=== PATIENT | male | born 1990 | race Caucasian/White ===

== ENCOUNTER 2019-02-27 19:57 | Inpatient (IN) | payer OTHER ==
[2019-02-27] MEDS ORDERED: ONDANSETRON 4 MG INJ IV (21:30)
[2019-02-27] MEDS ORDERED: NACL 0.9% 3 ML SYG IV (21:30)
[2019-02-27] MEDS ORDERED: INSULIN ASPART [NOVOLOG] 3 ML PEN SC (21:30)
[2019-02-27] MEDS ORDERED: ACCU-CHEK XX (21:30)
[2019-02-27] MEDS ORDERED: ACETAMINOPHEN 325 MG TAB PO (21:30)
[2019-02-27] MEDS: SOD CHLORIDE 0.9% 1,000 ML IV (21:43)
[2019-02-27] MEDS ORDERED: GLUCOSE GEL 15 GRAM TUBE PO ×2 (22:00)
[2019-02-27] MEDS ORDERED: GLUCOSE GEL 15 GRAM TUBE BUCCAL (22:00)
[2019-02-27] MEDS ORDERED: GLUCAGON 1 MG INJ IM (22:00)
[2019-02-27] MEDS ORDERED: DEXTROSE 50% 50 ML SYRINGE IV ×2 (22:00)
[2019-02-27] MEDS: INSULIN GLARGINE [LANTus] (100 UNITS/ML) SYG SC (22:14)
[2019-02-27] MEDS: INSULIN ASPART [NOVOLOG] 3 ML PEN SC (22:14)
[2019-02-28] MEDS: ACCU-CHEK XX ×4 (00:28→14:25)
[2019-02-28] MEDS: INSULIN ASPART [NOVOLOG] 3 ML PEN SC ×9 (01:25→20:20)
[2019-02-28 06:02] LABS: ADD MAN DIFF? NO
[2019-02-28 06:06] LABS: BASOPHIL # 0.1 10^3/ul (0.0-0.1); BASOPHILS % 0.3 % (0.0-2.0); EOSINOPHILS # 0.1 10^3/ul (0.0-0.5); EOSINOPHILS % 0.6 % (0.0-7.0); HEMATOCRIT 39.6 % (42.0-52.0); HEMOGLOBIN 13.9 g/dl (14.0-18.0); LYMPHOCYTES # 3.3 10^3/ul (0.8-2.9); LYMPHOCYTES % 15.9 % (15.0-51.0); MEAN CORPUSCULAR HEMOGLOBIN 27.5 pg (29.0-33.0); MEAN CORPUSCULAR HGB CONC 35.1 g/dl (32.0-37.0); MEAN CORPUSCULAR VOLUME 78.4 fl (82.0-101.0); MEAN PLATELET VOLUME 9.8 fl (7.4-10.4); MONOCYTE # 1.2 10^3/ul (0.3-0.9); MONOCYTES % 6.1 % (0.0-11.0); NEUTROPHIL # 15.7 10^3/ul (1.6-7.5); NEUTROPHILS % 76.5 % (39.0-77.0); PLATELET COUNT 426 10^3/UL (140-415); RED BLOOD COUNT 5.05 10^6/ul (4.70-6.10); RED CELL DISTRIBUTION WIDTH 11.8 % (11.5-14.5)
[2019-02-28 06:06] LABS: WHITE BLOOD COUNT 20.5 10^3/ul (4.8-10.8)
[2019-02-28] MEDS: SOD CHLORIDE 0.9% 1,000 ML IV ×3 (06:15→22:25)
[2019-02-28 06:41] LABS: ALBUMIN 2.9 g/dl (3.3-4.9)
[2019-02-28 06:43] LABS: ALANINE AMINOTRANSFERASE 82 IU/L (13-69); ALBUMIN/GLOBULIN RATIO 0.78; ALKALINE PHOSPHATASE 1008 IU/L (42-121); ANION GAP 7 (5-13); ASPARTATE AMINO TRANSFERASE 84 IU/L (15-46); BILIRUBIN,INDIRECT 0.2 mg/dl (0-1.1); BILIRUBIN,TOTAL 0.2 mg/dl (0.2-1.3); BLOOD UREA NITROGEN 16 mg/dl (7-20); CALCIUM 8.5 mg/dl (8.4-10.2); CARBON DIOXIDE 34 mmol/L (21-31); CHLORIDE 96 mmol/L (97-110); CREATININE 0.53 mg/dl (0.61-1.24); Estimated GFR > 60 mL/min (>60); GLUCOSE 176 mg/dl (70-220); SODIUM 137 mmol/L (135-144); TOTAL PROTEIN 6.6 g/dl (6.1-8.1)
[2019-02-28 06:45] LABS: MAGNESIUM 0.9 mg/dl (1.7-2.5)
[2019-02-28] MEDS: POTASSIUM CHLORIDE 100 ML IVPB ×2 (07:47→10:20)
[2019-02-28] MEDS: MAGNESIUM SULFATE 4 GM/100 ML 100 ML IVPB ×2 (09:04→12:09)
[2019-02-28] MEDS: LEVOFLOXACIN 500MG/D5W (PMX) 100 ML IVPB (10:46)
[2019-02-28] MEDS: POTASSIUM CHLORIDE (SR) 20 MEQ TAB PO (12:45)
[2019-02-28] MEDS ORDERED: VANCOMYCIN IV PER PHARMACY XX (13:00)
[2019-02-28] MEDS: PIPER-TAZO 3.375 GM IV (PMX) 100 ML IVPB ×2 (13:43→16:50)
[2019-02-28] MEDS: VANCOMYCIN 1 GM 250 ML IVPB (13:53)
[2019-02-28] MEDS: INSULIN GLARGINE [LANTus] (100 UNITS/ML) SYG SC (20:23)
[2019-02-28 20:54] LABS: LACTIC ACID 2.9 mmol/L (0.5-2.0)
[2019-02-28] MEDS ORDERED: INSULIN GLARGINE [LANTus] (100 UNITS/ML) SYG SC (21:00)
[2019-03-01] MEDS: PIPER-TAZO 3.375 GM IV (PMX) 100 ML IVPB ×5 (00:22→23:45)
[2019-03-01 00:36] LABS: LACTIC ACID 1.7 mmol/L (0.5-2.0)
[2019-03-01] MEDS: ACCU-CHEK XX (02:00)
[2019-03-01] MEDS: VANCOMYCIN 750 MG (PMX) 250 ML IVPB ×2 (02:19→13:58)
[2019-03-01] MEDS: SOD CHLORIDE 0.9% 1,000 ML IV ×3 (05:18→21:18)
[2019-03-01 07:26] LABS: ADD MAN DIFF? NO
[2019-03-01 07:30] LABS: WHITE BLOOD COUNT 18.7 10^3/ul (4.8-10.8)
[2019-03-01 07:30] LABS: BASOPHIL # 0.1 10^3/ul (0.0-0.1); BASOPHILS % 0.4 % (0.0-2.0); EOSINOPHILS # 0.1 10^3/ul (0.0-0.5); EOSINOPHILS % 0.4 % (0.0-7.0); HEMATOCRIT 40.2 % (42.0-52.0); HEMOGLOBIN 13.6 g/dl (14.0-18.0); LYMPHOCYTES # 3.3 10^3/ul (0.8-2.9); LYMPHOCYTES % 17.7 % (15.0-51.0); MEAN CORPUSCULAR HGB CONC 33.8 g/dl (32.0-37.0); MEAN CORPUSCULAR VOLUME 79.8 fl (82.0-101.0); MEAN PLATELET VOLUME 9.7 fl (7.4-10.4); MONOCYTE # 1.3 10^3/ul (0.3-0.9); MONOCYTES % 6.8 % (0.0-11.0); NEUTROPHIL # 13.9 10^3/ul (1.6-7.5); NEUTROPHILS % 74.2 % (39.0-77.0); PLATELET COUNT 427 10^3/UL (140-415); RED BLOOD COUNT 5.04 10^6/ul (4.70-6.10); RED CELL DISTRIBUTION WIDTH 11.8 % (11.5-14.5)
[2019-03-01 07:58] LABS: ALANINE AMINOTRANSFERASE 72 IU/L (13-69); ALBUMIN 2.9 g/dl (3.3-4.9); ALBUMIN/GLOBULIN RATIO 0.82; ALKALINE PHOSPHATASE 961 IU/L (42-121); ANION GAP 7 (5-13); ASPARTATE AMINO TRANSFERASE 75 IU/L (15-46); BILIRUBIN,INDIRECT 0.4 mg/dl (0-1.1); BILIRUBIN,TOTAL 0.4 mg/dl (0.2-1.3); BLOOD UREA NITROGEN 12 mg/dl (7-20); CARBON DIOXIDE 32 mmol/L (21-31); CHLORIDE 97 mmol/L (97-110); CREATININE 0.61 mg/dl (0.61-1.24); Estimated GFR > 60 mL/min (>60); GLUCOSE 187 mg/dl (70-220); MAGNESIUM 1.2 mg/dl (1.7-2.5); PHOSPHORUS 2.6 mg/dl (2.5-4.9); SODIUM 136 mmol/L (135-144); TOTAL PROTEIN 6.4 g/dl (6.1-8.1)
[2019-03-01] MEDS: INSULIN ASPART [NOVOLOG] 3 ML PEN SC ×7 (08:02→21:07)
[2019-03-01] MEDS: POTASSIUM CHLORIDE (SR) 20 MEQ TAB PO ×2 (08:58→10:37)
[2019-03-01] MEDS: POTASSIUM CHLORIDE 100 ML IVPB (08:59)
[2019-03-01] MEDS: INSULIN GLARGINE [LANTus] (100 UNITS/ML) SYG SC ×2 (09:07→21:07)
[2019-03-01] MEDS: MAGNESIUM SULFATE 6 GM in DEXTROSE 5% 100 ML IVPB (09:26)
[2019-03-01 14:52] LABS: HAAIG REFLEX REFLEX FILED
[2019-03-01 15:31] LABS: HEPATITIS B SURFACE ANTIGEN NEGATIVE (NEGATIVE)
[2019-03-01 15:49] LABS: HEPATITIS B CORE ANTIBODY NEGATIVE (NEGATIVE); HEPATITIS C VIRAL ANTIBODY NEGATIVE (NEGATIVE)
[2019-03-02] MEDS: ACCU-CHEK XX (02:00)
[2019-03-02 02:03] LABS: VANCOMYCIN,TROUGH 5.2 ug/ml (10.0-20.0)
[2019-03-02] MEDS: VANCOMYCIN 750 MG (PMX) 250 ML IVPB ×3 (02:32→19:28)
[2019-03-02] MEDS: SOD CHLORIDE 0.9% 1,000 ML IV ×3 (05:23→20:29)
[2019-03-02] MEDS: PIPER-TAZO 3.375 GM IV (PMX) 100 ML IVPB ×4 (05:44→23:25)
[2019-03-02 06:41] LABS: ADD MAN DIFF? NO
[2019-03-02 06:51] LABS: BASOPHIL # 0.1 10^3/ul (0.0-0.1); BASOPHILS % 0.4 % (0.0-2.0); EOSINOPHILS # 0.1 10^3/ul (0.0-0.5); EOSINOPHILS % 0.6 % (0.0-7.0); HEMOGLOBIN 13.9 g/dl (14.0-18.0); LYMPHOCYTES # 2.6 10^3/ul (0.8-2.9); LYMPHOCYTES % 19.2 % (15.0-51.0); MEAN CORPUSCULAR HEMOGLOBIN 27.5 pg (29.0-33.0); MEAN CORPUSCULAR HGB CONC 33.9 g/dl (32.0-37.0); MEAN PLATELET VOLUME 9.7 fl (7.4-10.4); MONOCYTE # 1.1 10^3/ul (0.3-0.9); MONOCYTES % 7.8 % (0.0-11.0); NEUTROPHIL # 9.9 10^3/ul (1.6-7.5); NEUTROPHILS % 71.5 % (39.0-77.0); PLATELET COUNT 429 10^3/UL (140-415); RED BLOOD COUNT 5.06 10^6/ul (4.70-6.10); RED CELL DISTRIBUTION WIDTH 11.9 % (11.5-14.5)
[2019-03-02 06:51] LABS: WHITE BLOOD COUNT 13.8 10^3/ul (4.8-10.8)
[2019-03-02 07:05] LABS: ALANINE AMINOTRANSFERASE 80 IU/L (13-69); ALBUMIN 2.9 g/dl (3.3-4.9); ALKALINE PHOSPHATASE 1192 IU/L (42-121); ANION GAP 7 (5-13); ASPARTATE AMINO TRANSFERASE 88 IU/L (15-46); BILIRUBIN,INDIRECT 0.1 mg/dl (0-1.1); BILIRUBIN,TOTAL 0.1 mg/dl (0.2-1.3); BLOOD UREA NITROGEN 18 mg/dl (7-20); CALCIUM 8.2 mg/dl (8.4-10.2); CARBON DIOXIDE 32 mmol/L (21-31); CHLORIDE 96 mmol/L (97-110); CREATININE 0.63 mg/dl (0.61-1.24); Estimated GFR > 60 mL/min (>60); GLUCOSE 194 mg/dl (70-220); PHOSPHORUS 3.3 mg/dl (2.5-4.9); POTASSIUM 3.1 mmol/L (3.5-5.1); SODIUM 135 mmol/L (135-144); TOTAL PROTEIN 6.5 g/dl (6.1-8.1)
[2019-03-02 07:12] LABS: GAMMA GLUTAMYL TRANSPEPTIDASE 1135 IU/L (0-50)
[2019-03-02] MEDS: IOHEXOL 300MG/ML 150 ML BTL (08:47)
[2019-03-02] MEDS: SOD CHLORIDE 0.9% 100 ML (08:47)
[2019-03-02] MEDS: POTASSIUM CHLORIDE (SR) 20 MEQ TAB PO (09:03)
[2019-03-02] MEDS: INSULIN ASPART [NOVOLOG] 3 ML PEN SC ×7 (09:23→20:43)
[2019-03-02] MEDS: INSULIN GLARGINE [LANTus] (100 UNITS/ML) SYG SC ×2 (09:23→20:42)
[2019-03-02] MEDS: MAGNESIUM SULFATE 4 GM/100 ML 100 ML IVPB ×2 (10:28→15:37)
[2019-03-02 14:16] LABS: ADD UMIC NO; UR ASCORBIC ACID NEGATIVE (NEGATIVE); UR BILIRUBIN (Dip) NEGATIVE (NEGATIVE); UR BLOOD (Dip) NEGATIVE (NEGATIVE); UR CLARITY CLEAR (CLEAR); UR COLOR STRAW (YELLOW); UR GLUCOSE (Dip) 3+ mg/dL (NEGATIVE); UR KETONES (Dip) NEGATIVE (NEGATIVE); UR LEUKOCYTE ESTERASE (Dip) NEGATIVE Leu/ul (NEGATIVE); UR NITRITE (Dip) NEGATIVE (NEGATIVE); UR SPECIFIC GRAVITY (Dip) 1.014 (1.003-1.030); UR TOTAL PROTEIN (Dip) NEGATIVE (NEGATIVE); UR UROBILINOGEN (Dip) NEGATIVE (NEGATIVE)
[2019-03-02 15:49] LABS: HIV 1&2 ANTIBODY NEGATIVE (NEGATIVE)
[2019-03-02 16:27] LABS: HEMATOCRIT 37.2 % (42.0-52.0); HEMOGLOBIN 12.5 g/dl (14.0-18.0)
[2019-03-02] MEDS: HEPARIN 5,000 UNIT/1 ML VIAL SC (20:43)
[2019-03-02 22:14] LABS: SITE Left Upper Forearm; TIME 2205
[2019-03-03] MEDS: VANCOMYCIN 750 MG (PMX) 250 ML IVPB ×2 (00:16→11:11)
[2019-03-03] MEDS: ACCU-CHEK XX (01:03)
[2019-03-03] MEDS: SOD CHLORIDE 0.9% 1,000 ML IV ×3 (05:51→22:10)
[2019-03-03] MEDS: PIPER-TAZO 3.375 GM IV (PMX) 100 ML IVPB ×2 (05:51→12:31)
[2019-03-03] MEDS: HEPARIN 5,000 UNIT/1 ML VIAL SC ×2 (08:28→22:04)
[2019-03-03] MEDS: INSULIN ASPART [NOVOLOG] 3 ML PEN SC ×7 (08:31→22:10)
[2019-03-03] MEDS: INSULIN GLARGINE [LANTus] (100 UNITS/ML) SYG SC ×2 (08:45→17:17)
[2019-03-03 09:18] LABS: ADD MAN DIFF? NO
[2019-03-03 09:20] LABS: WHITE BLOOD COUNT 12.5 10^3/ul (4.8-10.8)
[2019-03-03 09:20] LABS: BASOPHIL # 0.1 10^3/ul (0.0-0.1); BASOPHILS % 0.6 % (0.0-2.0); EOSINOPHILS # 0.1 10^3/ul (0.0-0.5); EOSINOPHILS % 0.4 % (0.0-7.0); HEMATOCRIT 39.8 % (42.0-52.0); HEMOGLOBIN 13.3 g/dl (14.0-18.0); LYMPHOCYTES # 2.3 10^3/ul (0.8-2.9); LYMPHOCYTES % 18.4 % (15.0-51.0); MEAN CORPUSCULAR HEMOGLOBIN 26.8 pg (29.0-33.0); MEAN CORPUSCULAR HGB CONC 33.4 g/dl (32.0-37.0); MEAN CORPUSCULAR VOLUME 80.2 fl (82.0-101.0); MEAN PLATELET VOLUME 9.3 fl (7.4-10.4); MONOCYTE # 1.2 10^3/ul (0.3-0.9); MONOCYTES % 9.2 % (0.0-11.0); NEUTROPHIL # 8.9 10^3/ul (1.6-7.5); PLATELET COUNT 388 10^3/UL (140-415); RED BLOOD COUNT 4.96 10^6/ul (4.70-6.10)
[2019-03-03 09:42] LABS: ALANINE AMINOTRANSFERASE 74 IU/L (13-69); ALBUMIN/GLOBULIN RATIO 0.81; ALKALINE PHOSPHATASE 1316 IU/L (42-121); ANION GAP 10 (5-13); ASPARTATE AMINO TRANSFERASE 87 IU/L (15-46); BILIRUBIN,INDIRECT 0.1 mg/dl (0-1.1); BILIRUBIN,TOTAL 0.1 mg/dl (0.2-1.3); BLOOD UREA NITROGEN 20 mg/dl (7-20); CALCIUM 8.6 mg/dl (8.4-10.2); CARBON DIOXIDE 30 mmol/L (21-31); CHLORIDE 93 mmol/L (97-110); Estimated GFR > 60 mL/min (>60); GLUCOSE 337 mg/dl (70-220); POTASSIUM 3.9 mmol/L (3.5-5.1); SODIUM 133 mmol/L (135-144); TOTAL PROTEIN 6.7 g/dl (6.1-8.1)
[2019-03-03 09:46] LABS: VANCOMYCIN,TROUGH 11.7 ug/ml (10.0-20.0)
[2019-03-03 11:23] LABS: MITOCHONDRIAL TB NEGATIVE (NEGATIVE)
[2019-03-03] MEDS: CEFEPIME 1GM/50 ML (PMX) 50 ML IVPB (22:00)
[2019-03-04] MEDS: ACCU-CHEK XX (02:00)
[2019-03-04 05:40] LABS: ADD MAN DIFF? NO
[2019-03-04 05:47] LABS: WHITE BLOOD COUNT 10.6 10^3/ul (4.8-10.8)
[2019-03-04 05:47] LABS: BASOPHIL # 0.1 10^3/ul (0.0-0.1); BASOPHILS % 0.8 % (0.0-2.0); EOSINOPHILS # 0.1 10^3/ul (0.0-0.5); EOSINOPHILS % 0.9 % (0.0-7.0); HEMATOCRIT 40.3 % (42.0-52.0); HEMOGLOBIN 13.6 g/dl (14.0-18.0); LYMPHOCYTES # 3.3 10^3/ul (0.8-2.9); LYMPHOCYTES % 31.2 % (15.0-51.0); MEAN CORPUSCULAR HEMOGLOBIN 27.4 pg (29.0-33.0); MEAN CORPUSCULAR HGB CONC 33.7 g/dl (32.0-37.0); MEAN CORPUSCULAR VOLUME 81.1 fl (82.0-101.0); MEAN PLATELET VOLUME 9.7 fl (7.4-10.4); MONOCYTE # 1.1 10^3/ul (0.3-0.9); MONOCYTES % 10.7 % (0.0-11.0); NEUTROPHIL # 5.9 10^3/ul (1.6-7.5); NEUTROPHILS % 55.6 % (39.0-77.0); PLATELET COUNT 402 10^3/UL (140-415); RED BLOOD COUNT 4.97 10^6/ul (4.70-6.10); RED CELL DISTRIBUTION WIDTH 11.9 % (11.5-14.5)
[2019-03-04 06:11] LABS: ALANINE AMINOTRANSFERASE 93 IU/L (13-69); ALBUMIN 3.1 g/dl (3.3-4.9); ALBUMIN/GLOBULIN RATIO 0.86; ALKALINE PHOSPHATASE 1314 IU/L (42-121); ANION GAP 8 (5-13); ASPARTATE AMINO TRANSFERASE 72 IU/L (15-46); BLOOD UREA NITROGEN 23 mg/dl (7-20); CALCIUM 9.2 mg/dl (8.4-10.2); CARBON DIOXIDE 29 mmol/L (21-31); CHLORIDE 98 mmol/L (97-110); CREATININE 0.71 mg/dl (0.61-1.24); Estimated GFR > 60 mL/min (>60); GLUCOSE 311 mg/dl (70-220); POTASSIUM 3.7 mmol/L (3.5-5.1); SODIUM 135 mmol/L (135-144); TOTAL PROTEIN 6.7 g/dl (6.1-8.1)
[2019-03-04] MEDS: LEVOFLOXACIN 500 MG TAB PO (06:19)
[2019-03-04] MEDS ORDERED: MAGNESIUM SULFATE 1 GM/D5W 100 ML IVPB (06:43)
[2019-03-04] MEDS: CEFEPIME 1GM/50 ML (PMX) 50 ML IVPB ×2 (07:58→20:18)
[2019-03-04] MEDS: SOD CHLORIDE 0.9% 1,000 ML IV ×2 (07:59→13:18)
[2019-03-04] MEDS: MAGNESIUM SULFATE 6 GM in DEXTROSE 5% 100 ML IVPB (08:56)
[2019-03-04] MEDS: HEPARIN 5,000 UNIT/1 ML VIAL SC ×2 (08:59→20:16)
[2019-03-04] MEDS: INSULIN ASPART [NOVOLOG] 3 ML PEN SC ×7 (09:04→20:14)
[2019-03-04 18:26] LABS: ALKALINE PHOSPHATASE 953 U/L (40-115); BONE ISOENZYMES 23 % (28-66); INTESTINAL ISOENZYMES 0 % (1-24); LIVER ISOENZYMES 77 % (25-69); PLACENTAL ISOENZYMES 0 % (0)
[2019-03-04 18:33] LABS: LACTATE DEHYDROGENASE 773 IU/L (313-618)
[2019-03-04] MEDS: LINAGLIPTIN 5 MG TABLET PO (18:57)
[2019-03-04] MEDS ORDERED: INSULIN GLARGINE [LANTus] (100 UNITS/ML) SYG SC (21:00)
[2019-03-04] MEDS: INSULIN GLARGINE [LANTus] (100 UNITS/ML) SYG SC (21:16)
[2019-03-05] MEDS: SOD CHLORIDE 0.9% 1,000 ML IV ×2 (00:50→05:18)
[2019-03-05] MEDS: ACCU-CHEK XX ×2 (01:06→03:17)
[2019-03-05] MEDS: INSULIN ASPART [NOVOLOG] 3 ML PEN SC ×5 (02:38→21:32)
[2019-03-05 05:19] LABS: ADD MAN DIFF? NO
[2019-03-05 05:24] LABS: WHITE BLOOD COUNT 10.7 10^3/ul (4.8-10.8)
[2019-03-05 05:24] LABS: BASOPHIL # 0.1 10^3/ul (0.0-0.1); BASOPHILS % 0.7 % (0.0-2.0); EOSINOPHILS # 0.1 10^3/ul (0.0-0.5); EOSINOPHILS % 0.7 % (0.0-7.0); HEMATOCRIT 39.7 % (42.0-52.0); HEMOGLOBIN 13.4 g/dl (14.0-18.0); LYMPHOCYTES # 3.3 10^3/ul (0.8-2.9); LYMPHOCYTES % 30.6 % (15.0-51.0); MEAN CORPUSCULAR HEMOGLOBIN 27.1 pg (29.0-33.0); MEAN CORPUSCULAR HGB CONC 33.8 g/dl (32.0-37.0); MEAN CORPUSCULAR VOLUME 80.4 fl (82.0-101.0); MEAN PLATELET VOLUME 9.5 fl (7.4-10.4); MONOCYTE # 1.2 10^3/ul (0.3-0.9); MONOCYTES % 11.4 % (0.0-11.0); PLATELET COUNT 448 10^3/UL (140-415); RED BLOOD COUNT 4.94 10^6/ul (4.70-6.10); RED CELL DISTRIBUTION WIDTH 11.9 % (11.5-14.5)
[2019-03-05] MEDS: LEVOFLOXACIN 500 MG TAB PO (05:47)
[2019-03-05 05:59] LABS: ANION GAP 7 (5-13); BLOOD UREA NITROGEN 25 mg/dl (7-20); CALCIUM 8.9 mg/dl (8.4-10.2); CARBON DIOXIDE 34 mmol/L (21-31); CHLORIDE 96 mmol/L (97-110); CREATININE 0.91 mg/dl (0.61-1.24); Estimated GFR > 60 mL/min (>60); GLUCOSE 166 mg/dl (70-220); MAGNESIUM 1.4 mg/dl (1.7-2.5); PHOSPHORUS 3.8 mg/dl (2.5-4.9); POTASSIUM 3.5 mmol/L (3.5-5.1); SODIUM 137 mmol/L (135-144)
[2019-03-05] MEDS: LINAGLIPTIN 5 MG TABLET PO (08:29)
[2019-03-05] MEDS: metFORMIN 500 MG TAB PO ×2 (08:29→17:35)
[2019-03-05] MEDS: CEFEPIME 1GM/50 ML (PMX) 50 ML IVPB ×2 (08:32→20:23)
[2019-03-05] MEDS: INSULIN GLARGINE [LANTus] (100 UNITS/ML) SYG SC ×2 (08:32→09:00)
[2019-03-05] MEDS: HEPARIN 5,000 UNIT/1 ML VIAL SC ×2 (08:32→20:26)
[2019-03-05] MEDS: DEXTROSE 5%-0.45% NACL 1,000 ML IV ×2 (10:00→18:20)
[2019-03-05] MEDS: MAGNESIUM OXIDE 400 MG TAB PO (10:09)
[2019-03-05] MEDS: POTASSIUM CHLORIDE (SR) 10 MEQ TAB PO (10:09)
[2019-03-05] MEDS ORDERED: INSULIN ASPART [NOVOLOG] 3 ML PEN SC ×2 (11:40→13:00)
[2019-03-05] MEDS ORDERED: Insulin NOVOLOG SS MODERATE Algorithm(NPO/TPN/ENTERAL FEEDS) SC (13:00)
[2019-03-06] MEDS: INSULIN ASPART [NOVOLOG] 3 ML PEN SC (01:42)
[2019-03-06] MEDS: ACCU-CHEK XX ×17 (02:00→23:00)
[2019-03-06] MEDS: DEXTROSE 5%-0.45% NACL 1,000 ML IV ×3 (02:12→19:01)
[2019-03-06 05:37] LABS: ADD MAN DIFF? NO
[2019-03-06 05:41] LABS: WHITE BLOOD COUNT 13.1 10^3/ul (4.8-10.8)
[2019-03-06 05:41] LABS: ABNORMAL IP MESSAGE 1; BASOPHIL # 0.1 10^3/ul (0.0-0.1); BASOPHILS % 0.8 % (0.0-2.0); EOSINOPHILS # 0.1 10^3/ul (0.0-0.5); EOSINOPHILS % 0.8 % (0.0-7.0); HEMATOCRIT 39.4 % (42.0-52.0); HEMOGLOBIN 13.3 g/dl (14.0-18.0); LYMPHOCYTES # 4.2 10^3/ul (0.8-2.9); LYMPHOCYTES % 32.2 % (15.0-51.0); MEAN CORPUSCULAR HEMOGLOBIN 27.1 pg (29.0-33.0); MEAN CORPUSCULAR HGB CONC 33.8 g/dl (32.0-37.0); MEAN CORPUSCULAR VOLUME 80.4 fl (82.0-101.0); MEAN PLATELET VOLUME 9.4 fl (7.4-10.4); MONOCYTE # 1.6 10^3/ul (0.3-0.9); MONOCYTES % 12.2 % (0.0-11.0); NEUTROPHILS % 53.2 % (39.0-77.0); PLATELET COUNT 434 10^3/UL (140-415); POSITIVE DIFF @See below; RED CELL DISTRIBUTION WIDTH 12.1 % (11.5-14.5)
[2019-03-06 06:27] LABS: ANION GAP 7 (5-13); BLOOD UREA NITROGEN 29 mg/dl (7-20); CALCIUM 9.6 mg/dl (8.4-10.2); CARBON DIOXIDE 32 mmol/L (21-31); CHLORIDE 96 mmol/L (97-110); CREATININE 0.85 mg/dl (0.61-1.24); Estimated GFR > 60 mL/min (>60); GLUCOSE 153 mg/dl (70-220); PHOSPHORUS 4.9 mg/dl (2.5-4.9); POTASSIUM 4.4 mmol/L (3.5-5.1); SODIUM 135 mmol/L (135-144)
[2019-03-06] MEDS: LEVOFLOXACIN 500 MG TAB PO (06:28)
[2019-03-06 06:45] LABS: ALANINE AMINOTRANSFERASE 176 IU/L (13-69); ALBUMIN 3.3 g/dl (3.3-4.9); ALKALINE PHOSPHATASE 1287 IU/L (42-121); ASPARTATE AMINO TRANSFERASE 142 IU/L (15-46); BILIRUBIN,INDIRECT 0.1 mg/dl (0-1.1); BILIRUBIN,TOTAL 0.1 mg/dl (0.2-1.3); TOTAL PROTEIN 6.7 g/dl (6.1-8.1)
[2019-03-06 06:52] LABS: MAGNESIUM 0.9 mg/dl (1.7-2.5)
[2019-03-06] MEDS ORDERED: DEXTROSE 50% 50 ML SYRINGE IV ×4 (09:00→10:00)
[2019-03-06] MEDS ORDERED: INSULIN GLARGINE [LANTus] (100 UNITS/ML) SYG SC (09:00)
[2019-03-06] MEDS ORDERED: GLUCAGON 1 MG INJ IM (10:00)
[2019-03-06] MEDS ORDERED: GLUCOSE GEL 15 GRAM TUBE BUCCAL (10:00)
[2019-03-06] MEDS ORDERED: GLUCOSE GEL 15 GRAM TUBE PO ×2 (10:00)
[2019-03-06] MEDS: CEFEPIME 1GM/50 ML (PMX) 50 ML IVPB ×2 (10:17→21:57)
[2019-03-06] MEDS: MAGNESIUM SULFATE 6 GM in DEXTROSE 5% 100 ML IVPB (10:17)
[2019-03-06] MEDS: HEPARIN 5,000 UNIT/1 ML VIAL SC ×2 (10:21→21:59)
[2019-03-06] MEDS: INSULIN HUMAN REGULAR 100 UNIT in SOD CHLORIDE 0.9% 99 ML IV (11:38)
[2019-03-06] MEDS: INSULIN GLARGINE [LANTus] (100 UNITS/ML) SYG SC (20:12)
[2019-03-06] MEDS: metFORMIN (XR) 500 MG TAB PO (21:57)
[2019-03-07] MEDS: ACCU-CHEK XX ×20 (01:00→18:30)
[2019-03-07] MEDS: DEXTROSE 5%-0.45% NACL 1,000 ML IV ×2 (03:04→12:00)
[2019-03-07] MEDS: INSULIN HUMAN REGULAR 100 UNIT in SOD CHLORIDE 0.9% 99 ML IV (04:39)
[2019-03-07] MEDS: LEVOFLOXACIN 500 MG TAB PO ×2 (05:00→06:00)
[2019-03-07 05:05] LABS: ADD MAN DIFF? NO
[2019-03-07 05:13] LABS: WHITE BLOOD COUNT 12.9 10^3/ul (4.8-10.8)
[2019-03-07 05:13] LABS: BASOPHIL # 0.1 10^3/ul (0.0-0.1); BASOPHILS % 0.6 % (0.0-2.0); EOSINOPHILS # 0.1 10^3/ul (0.0-0.5); EOSINOPHILS % 0.9 % (0.0-7.0); HEMATOCRIT 39.8 % (42.0-52.0); HEMOGLOBIN 13.4 g/dl (14.0-18.0); LYMPHOCYTES # 3.2 10^3/ul (0.8-2.9); LYMPHOCYTES % 25.2 % (15.0-51.0); MEAN CORPUSCULAR HEMOGLOBIN 27.1 pg (29.0-33.0); MEAN CORPUSCULAR HGB CONC 33.7 g/dl (32.0-37.0); MEAN CORPUSCULAR VOLUME 80.4 fl (82.0-101.0); MEAN PLATELET VOLUME 9.3 fl (7.4-10.4); MONOCYTE # 1.1 10^3/ul (0.3-0.9); MONOCYTES % 8.7 % (0.0-11.0); NEUTROPHIL # 8.2 10^3/ul (1.6-7.5); NEUTROPHILS % 63.9 % (39.0-77.0); PLATELET COUNT 424 10^3/UL (140-415); RED BLOOD COUNT 4.95 10^6/ul (4.70-6.10); RED CELL DISTRIBUTION WIDTH 12.1 % (11.5-14.5)
[2019-03-07 05:49] LABS: ALANINE AMINOTRANSFERASE 131 IU/L (13-69); ALBUMIN 3.5 g/dl (3.3-4.9); ALBUMIN/GLOBULIN RATIO 0.92; ALKALINE PHOSPHATASE 1334 IU/L (42-121); ANION GAP 7 (5-13); ASPARTATE AMINO TRANSFERASE 68 IU/L (15-46); BILIRUBIN,INDIRECT 0.1 mg/dl (0-1.1); BILIRUBIN,TOTAL 0.1 mg/dl (0.2-1.3); BLOOD UREA NITROGEN 33 mg/dl (7-20); CARBON DIOXIDE 32 mmol/L (21-31); CHLORIDE 96 mmol/L (97-110); CREATININE 0.86 mg/dl (0.61-1.24); Estimated GFR > 60 mL/min (>60); GLUCOSE 268 mg/dl (70-220); MAGNESIUM 1.3 mg/dl (1.7-2.5); POTASSIUM 4.2 mmol/L (3.5-5.1); SODIUM 135 mmol/L (135-144); TOTAL PROTEIN 7.3 g/dl (6.1-8.1)
[2019-03-07] MEDS: INSULIN ASPART [NOVOLOG] 3 ML PEN SC ×4 (10:10→20:17)
[2019-03-07] MEDS: MAGNESIUM OXIDE 400 MG TAB PO (10:25)
[2019-03-07] MEDS: MAGNESIUM SULFATE 3 GM in DEXTROSE 5% 100 ML IVPB (10:27)
[2019-03-07] MEDS: CEFEPIME 1GM/50 ML (PMX) 50 ML IVPB ×2 (10:28→20:21)
[2019-03-07] MEDS: HEPARIN 5,000 UNIT/1 ML VIAL SC ×2 (10:39→20:23)
[2019-03-07] MEDS: metFORMIN (XR) 500 MG TAB PO ×2 (10:48→20:22)
[2019-03-07] MEDS: INSULIN GLARGINE [LANTus] (100 UNITS/ML) SYG SC (20:23)
[2019-03-07] MEDS: IODIXANOL LOCM 100 ML BTL (23:52)
[2019-03-07] MEDS: SOD CHLORIDE 0.9% 100 ML (23:52)
[2019-03-08] MEDS: ACCU-CHEK XX (02:02)
[2019-03-08 05:22] LABS: ADD MAN DIFF? NO
[2019-03-08 05:33] LABS: ABNORMAL IP MESSAGE 1; BASOPHIL # 0.1 10^3/ul (0.0-0.1); BASOPHILS % 0.5 % (0.0-2.0); EOSINOPHILS # 0.1 10^3/ul (0.0-0.5); EOSINOPHILS % 0.8 % (0.0-7.0); LYMPHOCYTES # 3.9 10^3/ul (0.8-2.9); LYMPHOCYTES % 23.4 % (15.0-51.0); MEAN CORPUSCULAR HEMOGLOBIN 27.2 pg (29.0-33.0); MEAN CORPUSCULAR HGB CONC 33.3 g/dl (32.0-37.0); MEAN CORPUSCULAR VOLUME 81.6 fl (82.0-101.0); MEAN PLATELET VOLUME 9.6 fl (7.4-10.4); MONOCYTE # 1.5 10^3/ul (0.3-0.9); MONOCYTES % 9.1 % (0.0-11.0); NEUTROPHIL # 10.9 10^3/ul (1.6-7.5); NEUTROPHILS % 65.1 % (39.0-77.0); PLATELET COUNT 402 10^3/UL (140-415); POSITIVE DIFF @See below; RED BLOOD COUNT 4.78 10^6/ul (4.70-6.10)
[2019-03-08 05:33] LABS: WHITE BLOOD COUNT 16.7 10^3/ul (4.8-10.8)
[2019-03-08 05:55] LABS: ALANINE AMINOTRANSFERASE 117 IU/L (13-69); ALBUMIN 3.5 g/dl (3.3-4.9); ALBUMIN/GLOBULIN RATIO 0.97; ALKALINE PHOSPHATASE 1206 IU/L (42-121); ANION GAP 9 (5-13); ASPARTATE AMINO TRANSFERASE 65 IU/L (15-46); BILIRUBIN,INDIRECT 0.1 mg/dl (0-1.1); BILIRUBIN,TOTAL 0.1 mg/dl (0.2-1.3); BLOOD UREA NITROGEN 36 mg/dl (7-20); CALCIUM 9.9 mg/dl (8.4-10.2); CARBON DIOXIDE 32 mmol/L (21-31); CHLORIDE 94 mmol/L (97-110); Estimated GFR > 60 mL/min (>60); GLUCOSE 227 mg/dl (70-220); MAGNESIUM 1.1 mg/dl (1.7-2.5); SODIUM 135 mmol/L (135-144); TOTAL PROTEIN 7.1 g/dl (6.1-8.1)
[2019-03-08] MEDS: LEVOFLOXACIN 500 MG TAB PO (06:09)
[2019-03-08] MEDS: metFORMIN (XR) 500 MG TAB PO ×2 (08:07→21:13)
[2019-03-08] MEDS: MAGNESIUM OXIDE 400 MG TAB PO (08:07)
[2019-03-08] MEDS: CEFEPIME 1GM/50 ML (PMX) 50 ML IVPB ×2 (08:08→21:12)
[2019-03-08] MEDS: INSULIN ASPART [NOVOLOG] 3 ML PEN SC ×7 (08:11→21:17)
[2019-03-08] MEDS: HEPARIN 5,000 UNIT/1 ML VIAL SC ×2 (08:13→21:20)
[2019-03-08] MEDS: MAGNESIUM SULFATE 3 GM in DEXTROSE 5% 100 ML IVPB (09:58)
[2019-03-08] MEDS: INSULIN GLARGINE [LANTus] (100 UNITS/ML) SYG SC (21:14)
[2019-03-08 22:18] LABS: ISLET CELL ANTIBODY SCREEN NEGATIVE (NEGATIVE)
[2019-03-08 23:08] LABS: CRYPTOCOCCAL ANTIGEN - SOURCE SERUM
[2019-03-09] MEDS: ACCU-CHEK XX (02:00)
[2019-03-09] MEDS: LEVOFLOXACIN 500 MG TAB PO (06:34)
[2019-03-09 06:44] LABS: ADD MAN DIFF? NO
[2019-03-09 06:48] LABS: WHITE BLOOD COUNT 15.5 10^3/ul (4.8-10.8)
[2019-03-09 06:48] LABS: BASOPHIL # 0.1 10^3/ul (0.0-0.1); BASOPHILS % 0.4 % (0.0-2.0); EOSINOPHILS % 0.2 % (0.0-7.0); HEMATOCRIT 38.7 % (42.0-52.0); HEMOGLOBIN 13.2 g/dl (14.0-18.0); LYMPHOCYTES # 2.2 10^3/ul (0.8-2.9); LYMPHOCYTES % 13.9 % (15.0-51.0); MEAN CORPUSCULAR HEMOGLOBIN 27.3 pg (29.0-33.0); MEAN CORPUSCULAR HGB CONC 34.1 g/dl (32.0-37.0); MEAN PLATELET VOLUME 9.4 fl (7.4-10.4); MONOCYTE # 1.5 10^3/ul (0.3-0.9); MONOCYTES % 9.6 % (0.0-11.0); NEUTROPHIL # 11.6 10^3/ul (1.6-7.5); NEUTROPHILS % 74.8 % (39.0-77.0); PLATELET COUNT 383 10^3/UL (140-415); RED BLOOD COUNT 4.84 10^6/ul (4.70-6.10); RED CELL DISTRIBUTION WIDTH 12.5 % (11.5-14.5)
[2019-03-09 07:30] LABS: ALANINE AMINOTRANSFERASE 78 IU/L (13-69); ALBUMIN 3.7 g/dl (3.3-4.9); ALBUMIN/GLOBULIN RATIO 0.92; ALKALINE PHOSPHATASE 1012 IU/L (42-121); ANION GAP 11 (5-13); ASPARTATE AMINO TRANSFERASE 34 IU/L (15-46); BILIRUBIN,INDIRECT 0.1 mg/dl (0-1.1); BILIRUBIN,TOTAL 0.1 mg/dl (0.2-1.3); BLOOD UREA NITROGEN 25 mg/dl (7-20); CALCIUM 10.2 mg/dl (8.4-10.2); CARBON DIOXIDE 28 mmol/L (21-31); CHLORIDE 96 mmol/L (97-110); CREATININE 0.85 mg/dl (0.61-1.24); Estimated GFR > 60 mL/min (>60); GLUCOSE 172 mg/dl (70-220); SODIUM 135 mmol/L (135-144); TOTAL PROTEIN 7.7 g/dl (6.1-8.1)
[2019-03-09 07:37] LABS: MAGNESIUM 0.9 mg/dl (1.7-2.5)
[2019-03-09] MEDS: INSULIN ASPART [NOVOLOG] 3 ML PEN SC ×7 (08:23→22:30)
[2019-03-09] MEDS: metFORMIN (XR) 500 MG TAB PO ×3 (08:53→20:48)
[2019-03-09] MEDS: CEFEPIME 1GM/50 ML (PMX) 50 ML IVPB ×2 (08:53→20:49)
[2019-03-09] MEDS: MAGNESIUM OXIDE 400 MG TAB PO ×2 (08:54→20:49)
[2019-03-09] MEDS: HEPARIN 5,000 UNIT/1 ML VIAL SC ×2 (08:54→22:30)
[2019-03-09 10:31] LABS: C-PEPTIDE 1.17 ng/mL (0.80-3.85)
[2019-03-09] MEDS: MAGNESIUM SULFATE 4 GM/100 ML 100 ML IVPB (11:10)
[2019-03-09] MEDS: INSULIN GLARGINE [LANTus] (100 UNITS/ML) SYG SC (22:31)
[2019-03-10] MEDS: ACCU-CHEK XX (02:14)
[2019-03-10] MEDS: LEVOFLOXACIN 500 MG TAB PO (06:23)
[2019-03-10] MEDS ORDERED: PROPOFOL 200 MG INJ (07:00)
[2019-03-10] MEDS ORDERED: LIDOCAINE 2% (SDV) 5 ML INJ (07:00)
[2019-03-10 07:07] LABS: ADD MAN DIFF? NO
[2019-03-10 07:21] LABS: WHITE BLOOD COUNT 14.8 10^3/ul (4.8-10.8)
[2019-03-10 07:21] LABS: ABNORMAL IP MESSAGE 1; BASOPHIL # 0.1 10^3/ul (0.0-0.1); BASOPHILS % 0.6 % (0.0-2.0); EOSINOPHILS % 0.2 % (0.0-7.0); HEMATOCRIT 39.2 % (42.0-52.0); HEMOGLOBIN 13.1 g/dl (14.0-18.0); LYMPHOCYTES # 2.7 10^3/ul (0.8-2.9); LYMPHOCYTES % 18.4 % (15.0-51.0); MEAN CORPUSCULAR HEMOGLOBIN 27.1 pg (29.0-33.0); MEAN CORPUSCULAR HGB CONC 33.4 g/dl (32.0-37.0); MEAN PLATELET VOLUME 9.6 fl (7.4-10.4); MONOCYTE # 1.8 10^3/ul (0.3-0.9); NEUTROPHILS % 67.8 % (39.0-77.0); PLATELET COUNT 374 10^3/UL (140-415); POSITIVE DIFF @See below; RED BLOOD COUNT 4.84 10^6/ul (4.70-6.10); RED CELL DISTRIBUTION WIDTH 12.4 % (11.5-14.5)
[2019-03-10 07:44] LABS: ANION GAP 14 (5-13); BLOOD UREA NITROGEN 29 mg/dl (7-20); CALCIUM 10.3 mg/dl (8.4-10.2); CARBON DIOXIDE 27 mmol/L (21-31); CHLORIDE 96 mmol/L (97-110); CREATININE 0.87 mg/dl (0.61-1.24); Estimated GFR > 60 mL/min (>60); GLUCOSE 152 mg/dl (70-220); POTASSIUM 3.9 mmol/L (3.5-5.1); SODIUM 137 mmol/L (135-144)
[2019-03-10 07:52] LABS: INR 0.84; PROTIME 11.6 Sec (11.9-14.9); PT RATIO 0.9
[2019-03-10 07:53] LABS: PARTIAL THROMBOPLASTIN TIME 30.3 Sec (23.0-35.0)
[2019-03-10] MEDS: INSULIN ASPART [NOVOLOG] 3 ML PEN SC ×6 (07:55→17:19)
[2019-03-10] MEDS: MAGNESIUM OXIDE 400 MG TAB PO (09:00)
[2019-03-10] MEDS: metFORMIN (XR) 500 MG TAB PO (09:00)
[2019-03-10] MEDS: HEPARIN 5,000 UNIT/1 ML VIAL SC (09:00)
[2019-03-10] MEDS ORDERED: MIDAZOLAM 1 MG/ML 2 ML INJ (09:57)
[2019-03-10] MEDS ORDERED: OXYCODONE/ACETAMINOPHEN (5/325) TAB PO (11:00)
[2019-03-10] MEDS ORDERED: EPHEDrine SULFATE 50 MG/5 ML SYG IV (11:00)
[2019-03-10] MEDS ORDERED: MEPERIDINE 25 MG INJ IV (11:00)
[2019-03-10] MEDS ORDERED: ONDANSETRON 4 MG INJ IV (11:00)
[2019-03-10] MEDS ORDERED: FENTAnyl 50 MCG/ML VIAL IV (11:00)
[2019-03-10] MEDS ORDERED: DIPHENHYDRAMINE 50 MG INJ IV (11:00)
[2019-03-10] MEDS ORDERED: ALBUTEROL 0.083% (NEB) 2.5 MG/3 ML AMP HHN (11:00)
[2019-03-10] MEDS ORDERED: hydrALAzine 20 MG INJ IV (11:00)
[2019-03-10] MEDS ORDERED: LABETALOL HCL 20MG INJ IV (11:00)
[2019-03-10] MEDS: LINAGLIPTIN 5 MG TABLET PO (12:10)
[2019-03-10] MEDS: CEFEPIME 1GM/50 ML (PMX) 50 ML IVPB (12:10)
[2019-03-11 00:23] LABS: GAD 65 ANTIBODY <5 IU/mL (<5)
== END 2019-03-10 18:10 | disposition home or self-care (01) | DRG 871 ==
LOC: ICU 03-05 11:31 → TEL 19:57 → MS1 03-03 20:55 → TEL 03-08 21:51
PROVIDERS: Internal Medicine
PROC: B24BZZ4 Ultrasonography of Heart with Aorta, Transesophageal (ICD-10-PCS; principal; 2019-03-10 09:05)
DX: A41.9 Sepsis, unspecified organism (principal); E43 Unspecified severe protein-calorie malnutrition; J18.9 Pneumonia, unspecified organism; Z68.1 Body mass index [BMI] 19.9 or less, adult; I95.9 Hypotension, unspecified; E11.65 Type 2 diabetes mellitus with hyperglycemia; E83.42 Hypomagnesemia; R62.7 Adult failure to thrive; E87.6 Hypokalemia; E86.0 Dehydration; D72.829 Elevated white blood cell count, unspecified; Z79.4 Long term (current) use of insulin
CPT/HCPCS: 71045; 71260; 74177; 74181; 76700; 80048; 80053; 80076; 80202; 81003; 82962; 82977; 83036; 83605; 83615; 83735; 84080; 84100; 84681; 85014; 85018; 85025; 85610; 85730; 86255; 86341; 86580; 86641; 86703; 86704; 86709; 86803; 87040-91; 87081; 87086; 87340; 93005; 93306; 93312; 93325